=== PATIENT | female | born 1930 | race Caucasian/White ===

== ENCOUNTER 2016-12-23 13:20 | Emergency (ER) | payer MEDICARE, MEDICAID ==
[~2016-12-23 13:20] MED LIST: ALPHAGAN-P5 ML OU; ASCORBIC ACID500 MG PO; AUGMENTIN875 MG PO; BACTROBAN OINT.22 GM TP; BETAXOLOL 0.5% OU; CLARITIN DPS10 MG PO; COLACE-DPS100 MG PO; COUMADIN DPS2 MG PO; DELTASONE DPS5 MG PO; DUONEB DPS3 ML IH; DURAGESIC-1212 MCG TD; HCTZ12.5 MG PO; HYDROCODONE 5MG/5 MG PO; LIDODERM PATC1 PATCH TD; LOMOTIL-DPS1 TAB PO; LUMIGAN 0.01%2.5 ML OU; MAALOX DPS30 ML PO; MACROBID100 MG PO; MULTIPLE VITAM1 EACH PO; MYCELEX TROCHE10 MG PO; MYRBETRIQ50 MG PO; NEURONTIN DPS300 MG PO; NITROSTAT0.4 MG SL; NORVASC5 MG PO; OCEAN NASAL MIS45 ML NS; OYSTER SHELL C500 MG PO; PLAQUENIL DPS200 MG PO; SPORTS CREAM85 GM TP; SURFAK DPS240 MG PO; SYNTHROID DP0.025 MG PO; TEARS NATURAL D15 ML OU; TOVIAZ8 MG PO; TYLENOL DPS325 MG PO; TYLENOL-DPS650 MG PR; VITAMIN D1000 UNI1 PO; XYLOCAINE TP; ZOLOFT DPS25 MG PO
--- NOTE | 2016-12-30 08:39 | ER ---
ADMIT: 12/23/2016 RM/LOC: ER [facility] MR#: [id number] [address] [address] [place] [address] Emergency Room Report SEX: F AGE: 86 : 1930 DATE: 12/23/2016 This 86-year-old female sent to the ER by the longterm because the patient refused to take medication to treat her UTI. She has apparently become belligerent and angry at the longterm staff and she stated she hated the staff there, hated the longterm, and did not want to take her medicines because of that. See T sheet for history and physical. UA was reviewed which had been done 2 days prior and it is indicative of the UTI. See T sheet for remainder of history and physical. CBC was pertinent for hemoglobin 11.4. Chemistries, sodium 146 and BUN of 34 and creatinine was 1.56. The patient was diagnosed with a UTI and subtherapeutic INR. She was given Bactrim in the Emergency Department, returned to the longterm where they were to continue Bactrim 1 p.o. b.i.d. times the next 10 days. Repeat an INR on Sunday and follow up with her doctor on Sunday. DIAGNOSES: 1. Urinary tract infection. 2. Subtherapeutic INR. Jase Mejia MD/ adalgisa JOB #: [id number] CC: Jase Mejia MD, Attending Physician UNKNOWN, Family Physician
[2017-01-28] MEDS ORDERED: NEURONTIN DPS300 MG PO (12:14)
[2017-01-28] MEDS ORDERED: MICRO-K DPS10 MEQ PO (12:14)
[2017-01-28] MEDS ORDERED: SEROQUEL50 MG PO (12:14)
[2017-01-28] MEDS ORDERED: CORDARONE DPS200 MG PO ×2 (12:14)
[2017-01-28] MEDS ORDERED: LOPRESSOR DPS100 MG PO (12:14)
[2017-01-28] MEDS ORDERED: SYNTHROID DP0.025 MG PO (12:14)
[2017-01-28] MEDS ORDERED: BETOPTIC S15 ML OU (12:15)
[2017-01-28] MEDS ORDERED: XALATAN2.5 ML OU (12:15)
[2017-01-28] MEDS ORDERED: ZOLOFT DPS25 MG PO (12:15)
[2017-01-28] MEDS ORDERED: THERA-M1 EACH PO (12:15)
[2017-01-28] MEDS ORDERED: DUONEB DPS3 ML IH (12:16)
[2017-01-28] MEDS ORDERED: MAALOX DPS30 ML PO (12:16)
[2017-01-28] MEDS ORDERED: TYLENOL DPS325 MG PO (12:16)
[2017-01-28] MEDS ORDERED: DURAGESIC1 EAC2 TP (12:16)
[2017-01-28] MEDS ORDERED: NITROSTAT0.4 MG SL (12:17)
== END 2016-12-23 19:50 | disposition home or self-care (01) ==
LOC: ER 13:20
DX: N39.0 Urinary tract infection, site not specified (principal); R79.1 Abnormal coagulation profile; E03.9 Hypothyroidism, unspecified; Z86.711 Personal history of pulmonary embolism; Z79.01 Long term (current) use of anticoagulants; Z79.899 Other long term (current) drug therapy

== ENCOUNTER 2017-01-15 12:01 | Inpatient (IN) | payer MEDICARE, MEDICAID ==
[~2017-01-15] VITALS: Ht 162.6 cm; Wt 86.6 kg
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
--- NOTE | ~2017-01-15 | CO ---
ADMIT: 01/15/2017 RM/LOC: 421 [facility] MR#: [id number] [id number] [address] [place] [address] Consultation SEX: F AGE: 86 : 1930 DATE OF CONSULTATION: 01/23/2017 ATTENDING PHYSICIAN: Sulaiman Thomas CONSULTING PHYSICIAN: Sulaiman Hummel MD ADDENDUM: You can see full dictated consult by Boo Whiting. She is a very pleasant, 86-year-old female, who came in with bright red blood per rectum. However, an INR was greater than 10. She has also been on Eliquis here. Her hemoglobin, she had been given a couple units of blood. They reversed her INR, but she still has had some drop in her blood count. She has though recently had a couple of bowel movements that were normal as far as brown with no evidence of blood per nursing. At this point, I was asked by Dr. Thomas to evaluate for upper and lower scopes. I visited with the Kelvin. The last time I can see, she had a colonoscopy in 2001 and one small cecal polyp. She did have multiple diverticulae, which could have been the source of bleeding although anything with an INR greater than 10 could have been bleeding. She did have a dose of Eliquis this morning so for now that is on hold and so my plan would be to prep her tomorrow and do upper and lower scopes on . I visit with Kelvin. She is okay with that. It is okay with proceeding with the scopes. Hemoglobin is 7.6 today. Otherwise, no complaints of abdominal pain. Exam of her abdomen is otherwise benign nothing else significant change. PLAN: As above. Sulaiman Hummel MD/ adalgisa JOB #: [id number] CC: Sulaiman Thomas, Attending Physician Sulaiman Thomas, Family Physician Sulaiman Thomas MD
--- NOTE | ~2017-01-15 | ECH ---
Transthoracic Echocardiography Report (TTE) Demographics Patient Name KELVIN TRINH Date of Study 01/16/2017 Patient Number [id number] Visit Number [id number] Date of 1930 Room Number 308 Accession Number [id number] Gender Female Age 86 year(s) Referring William Harringtonen [employer] Denise Isabel Physician Jeimy TAMAYO [facility] Tomás Physician Interpreting Jeimy TAMAYO Safe Deposit Attendant Physician Tomás Supervising Ordering Physician Jeimy TAMAYO MD/YINA [place] Nurse Stress Laboratory Tech Conclusions Contractility Score Summary Normal Left Ventricular contractility was noted. Summary Technically adequate exam. The estimated left ventricular ejection fraction is 60-65%. Discrete upper septal thickening without a gradient. The left atrium is severely dilated by LA volume index measurement. The right atrium is mildly dilated. Mild-moderate mitral regurgitation by color Doppler. There is mild aortic regurgitation by color Doppler. Mild tricuspid regurgitation by color Doppler. There is mild pulmonary hypertension. The pulmonary pressure (RVSP) is 35 mmHg. The ascending aorta appears mildly dilated. The maximum diameter measures 3.2 cm. Recommendation The patient was given the results of the exam during their hospital stay. Procedure Type of Study TTE procedure:Echo Complete SF. Procedure Date Date: 01/16/2017 Start: 08:55 Technical Quality: Adequate visualization Indications:Paroxysmal a-fib and Hypertension. Appropriate Use Criteria: 9 Height: 64 inches Weight: 172 pounds BSA: 1.83 m Rhythm: Within normal limits HR: 72 bpm BP: 113/39 mmHg M-Mode/2D Measurements LV Diastolic Dimension: 4.88 cm LV Systolic Dimension: 2.89 cm LV Septum Diastolic: 0.83 cm LV PW Diastolic: 0.82 cm AO Root Dimension: 2.85 cm Cardiac Output: 5.97 l/min LA Dimension: 4.69 cm Cardiac Index: 3.26 l/min*m RV Diastolic Dimension: 4.11 cm LA volume index: 48 ml/m LVOT: 1.97 cm LVOT VTI: 27.2 cm RV Base: 3.8 cm LV Stroke volume: 82.86 ml RV Mid: 2.1 cm LV Stroke volume index: 45.28 ml/m TAPSE: 1.6 cm TDI-S': 13 cm/s Doppler Measurements AV Peak Velocity: 2.3 m/s MV Peak E-Wave: 1.36 m/s AV Peak Gradient: 21.16 mmHg MV Peak A-Wave: 1.22 m/s AV Mean Gradient: 12.77 mmHg MV E/A Ratio: 1.12 LVOT Peak Velocity: 1.29 m/s MV P1/2t: 52.9 msec AV Area (Continuity):1.75 cm AV P1/2t: 352.3 msec MV Deceleration Time: 174 msec TR Velocity:2.84 m/s MV Area (PHT): 4.16 cm TR Gradient:32.26 mmHg PV Peak Velocity: 1.2 m/s Estimated RAP:3 mmHg PV Peak Gradient: 5.74 mmHg Estimated RVSP: 35 mmHg Estimated PASP: 35.26 mmHg E' Septal Velocity: 0.06 m/s A' Septal Velocity: 0.06 m/s E' Lateral Velocity: 0.1 m/s A' Lateral Velocity: 0.08 m/s RA Area: 18.78 cm Findings Left Ventricle Normal left ventricle size and function. Diastolic assessment reveals normal relaxation. Right Ventricle Normal right ventricle structure and function. Left Atrium The left atrium is severely dilated by LA volume index measurement. Right Atrium The right atrium is mildly dilated. Mitral Valve Mild mitral annular calcification. Mild-moderate mitral regurgitation by color Doppler. Aortic Valve The aortic valve is moderately sclerotic. There is mild aortic regurgitation by color Doppler. Tricuspid Valve Normal tricuspid valve structure and function. Mild tricuspid regurgitation by color Doppler. There is mild pulmonary hypertension. The pulmonary pressure (RVSP) is 35 mmHg. Pulmonic Valve Normal pulmonic valve structure and function. Mild pulmonic valve regurgitation by color Doppler. Pericardial Effusion No evidence of pericardial effusion. Miscellaneous The ascending aorta appears mildly dilated. The maximum diameter measures 3.2 cm. Pleural Effusion No evidence of pleural effusion. Contractility Score LV regional wall motion:(0-Non visualized 1-Normal 2-Hypokinesis 3-Akinesis 4-Dyskinesis 5-Aneurysm) Signature
--- NOTE | ~2017-01-15 | ER ---
ADMIT: 01/15/2017 RM/LOC: 421 [facility] MR#: [id number] [id number] [address] [place] [address] Emergency Room Report SEX: F AGE: 86 : 1930 DATE: 01/15/2017 ADDENDUM: This is an addendum to GRANT Mckenzie's note. I took over the care of the patient as she became hypotensive and bradycardic in the Emergency Department at which point, the patient appeared anxious. Her lungs remained clear to auscultation. Cardiovascular, no murmur, but rapid regular rate and rhythm. Blood pressure was declining, therefore patient was given emergently 4 units of FFP and vitamin K, as well as given O positive blood. Metoprolol was given in attempts to slow heart rate down. The patient was subsequently admitted with GI bleed. Jase Mejia MD/ adalgisa JOB #: [id number] CC: Sulaiman Thomas MD, Attending Physician Sulaiman Thomas MD, Family Physician
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
--- NOTE | 2017-01-22 06:05 | NUR ---
Pt has been agitated and refusing to allow us to reposition or is refusing to allow taking of vital signs. She has been verbally abusive this shift. We have made every effort to accommodate the patient and keep her comfortable this shift. Last night she took pills with applesause but this morning is refusing until she talks with the doctor.
[2017-01-28] MEDS ORDERED: SYNTHROID DP0.025 MG PO (12:14)
[2017-01-28] MEDS ORDERED: NEURONTIN DPS300 MG PO (12:14)
[2017-01-28] MEDS ORDERED: CORDARONE DPS200 MG PO ×2 (12:14)
[2017-01-28] MEDS ORDERED: SEROQUEL50 MG PO (12:14)
[2017-01-28] MEDS ORDERED: MICRO-K DPS10 MEQ PO (12:14)
[2017-01-28] MEDS ORDERED: LOPRESSOR DPS100 MG PO (12:14)
[2017-01-28] MEDS ORDERED: ZOLOFT DPS25 MG PO (12:15)
[2017-01-28] MEDS ORDERED: XALATAN2.5 ML OU (12:15)
[2017-01-28] MEDS ORDERED: BETOPTIC S15 ML OU (12:15)
[2017-01-28] MEDS ORDERED: THERA-M1 EACH PO (12:15)
[2017-01-28] MEDS ORDERED: DUONEB DPS3 ML IH (12:16)
[2017-01-28] MEDS ORDERED: MAALOX DPS30 ML PO (12:16)
[2017-01-28] MEDS ORDERED: TYLENOL DPS325 MG PO (12:16)
[2017-01-28] MEDS ORDERED: DURAGESIC1 EAC2 TP (12:16)
[2017-01-28] MEDS ORDERED: NITROSTAT0.4 MG SL (12:17)
--- NOTE | 2017-01-28 19:20 | CO ---
ADMIT: 01/15/2017 RM/LOC: 421 [facility] MR#: [id number] [address] [address] [place] [address] Consultation SEX: F AGE: 86 : 1930 DATE OF CONSULTATION: 01/23/2017 ATTENDING PHYSICIAN: Sulaiman Thomas CONSULTING PHYSICIAN: Sulaiman Hummel MD REASON FOR CONSULTATION: Anemia, question GI blood loss. HISTORY OF PRESENT ILLNESS: Kelvin is a very pleasant 86-year-old female, who apparently was at her retirement about a week ago where staff noted blood in her bed that appeared to be coming from her rectum. It was bright red blood at this time. Since then, she came in through the Emergency Department and was found to have an INR of 10. She was reversed at that time, and now the INR has been subtherapeutic throughout her hospital stay. She was improving based off her hemoglobin with conservative measures, but now there has been a noted trend downwards with her hemoglobin. When discussing with the patient, she reports that she has noticed blood in her stool, however, she does not know exactly when that happened. Of note, she does have issues with dementia. She denies any pain, nausea, vomiting, diarrhea, or constipation. Apparently, the last day or two she had some rather large bowel movements that were brown. She does report getting colonoscopy done, but she does not remember exactly when it was. She denies any prior EGDs. PAST MEDICAL HISTORY: Significant for atrial fibrillation, hypertension, dementia, pulmonary emboli, GERD, depression, arthritis, glaucoma, and rheumatoid arthritis. PAST SURGICAL HISTORY: The patient reports back surgery, right total knee, and IVC filter placement. ALLERGIES: TRIMETHOPRIM SULFA AND MORPHINE. MEDICATIONS: Well documented in chart. She was on Eliquis that has now been held. FAMILY HISTORY: Noncontributory. SOCIAL HISTORY: The patient denies any tobacco, alcohol, or illicit drug use. REVIEW OF SYSTEMS: CONSTITUTIONAL: The patient denies any fever, chills, or night sweats. MUSCULOSKELETAL: The patient ambulates with a walker, but denies any joint pain or loss of range of motion. PHYSICAL EXAMINATION: GENERAL: The patient is in no acute distress. She is alert and oriented. HEENT: Head is normocephalic and atraumatic. EOMs are intact. Conjunctivae free of icterus, erythema, or pallor. Pinnae, free of deformities. Nose, midline. No tracheal deviation. ADMIT: 01/15/2017 RM/LOC: 421 [facility] MR#: [id number] [facility] [address] [address] [place] [address] Consultation SEX: F AGE: 86 : 1930 NECK: Supple. SKIN: Negative for jaundice, clubbing, edema, pallor, or cyanosis. Some purpura noted on the upper extremities consistent with anticoagulation therapy. LUNGS: Normal respiratory effort. HEART: Distal pulses intact. Regular rate and rhythm. ABDOMEN: Soft, nondistended, and nontender. NEURO: Grossly intact. LABORATORY DATA: Current hemoglobin is 7.6. ASSESSMENT: Anemia, anticoagulation therapy. PLAN: The plan is to have the patient undergo colonoscopy to assess for lower gastrointestinal bleed. Her Eliquis was held today. I discussed the risks, alternatives, benefits, and complications of colonoscopy with the patient to which she has agreement of this plan, had all her questions answered and will like to proceed. I have her on the schedule currently, but we might reschedule for a later date to give time for the Eliquis to metabolize. The patient agrees and would like to proceed. Thank you for the consultation on this patient. GRANT Magana / Sulaiman Hummel MD / adalgisa JOB #: [id number] CC: Sulaiman Thomas, Attending Physician Sulaiman Thomas, Family Physician
--- NOTE | 2017-01-29 08:10 | CO ---
ADMIT: 01/15/2017 RM/LOC: 421 [facility] MR#: [id number] [address] [address] [place] [address] Consultation SEX: F AGE: 86 : 1930 DATE OF CONSULTATION: 01/24/2017 ATTENDING PHYSICIAN: Sulaiman Thomas CONSULTING PHYSICIAN: Lauri Vera MD LOCATION: [facility]. REASON FOR CONSULTATION: Dr. Thomas has requested our consultation for tour counselor and coordination goals and options of care. HISTORY OF PRESENT ILLNESS: This is an 86-year-old, elderly female, who lives at [facility], who apparently a week ago noticed blood in her bed, appeared to be coming from her rectum. She presented to the Emergency Department and was found to have an INR of 10. Her INR was reversed at that time, and her Coumadin is currently on hold. She was improving with her hemoglobin with conservative measures, but recently her hemoglobin has been decreasing with bloody stools. There are plans for an EGD and a colonoscopy tomorrow. She does have known dementia and appears calm and comfortable. She is alert, however confused, and not cooperative with cares at times. Urine culture was obtained which did reveal E. coli. She is currently on antibiotic therapy with Merrem. She is receiving GoLYTELY as her prep for her EGD and colonoscopy is scheduled for tomorrow. Current functional status reflects a palliative performance score of around 50. She spends most of time sitting or lying, unable to any work, needing assistance with self care. Her intake is reduced. Her conscious level, she is alert, however confused and agitated at times with interaction. Prior to admission, her functional status reflects a palliative performance score of around 50 to 60 with reduced ambulation, unable to do hobbies or housework, needing assistance with self care. Her intake has been reduced. Her conscious level, she is alert and confused. She currently lives at [facility]. Her FAST score is a 6. PAST MEDICAL HISTORY: 1. Dementia. 2. Paroxysmal atrial fibrillation, on chronic anticoagulation with Coumadin. 3. Hypertension. 4. Pulmonary emboli. 5. GERD. 6. Depression. 7. Arthritis. 8. Glaucoma. 9. Rheumatoid arthritis. 10.Chronic pain, using Duragesic patch 25 mcg an hour. PAST SURGICAL HISTORY: 1. Back surgery. 2. Right total knee surgery. ADMIT: 01/15/2017 RM/LOC: 421 [facility] MR#: [id number] [address] [address] [place] [address] Consultation SEX: F AGE: 86 : 1930 3. IVC filter. ADVANCED DIRECTIVE AND CODE STATUS: She is a do not resuscitate/do not intubate status. She does have a guardian which is her son Tomás Reese #[phone]. SOCIAL HISTORY: She lives at [facility]. She is . She is Spiritism. There was no reports of alcohol, tobacco use, or illicit drug use. FAMILY HISTORY: Reviewed and noncontributory. CURRENT MEDICATIONS: Include; 1. Micro-K. 2. Merrem. 3. Lopressor. 4. Colace. 5. Maalox. 6. Duragesic 25 mcg patch. 7. Multivitamin. 8. Zoloft. 9. Seroquel. 10.Synthroid. 11.Xalatan. 12.Betoptic. 13.Neurontin. 14.DuoNeb. 15.Tylenol. ALLERGIES: SULFA, MORPHINE, SULFAMETHOXAZOLE, TRIMETHOPRIM. REVIEW OF SYSTEMS: A 10-point review of system was conducted, however due to patient's cognition, I was unable to obtain. PHYSICAL EXAMINATION: CONSTITUTIONAL: Weight is 188 pounds. Please see medical record for height and BMI. GENERAL STATUS: This is an elderly female, in no acute distress. Alert and confused with discussion and becomes agitated with my consultation. VITAL SIGNS AND CODE STATUS: She is a do not resuscitate/do not intubate status with temperature of 96.9, heart rate 60, respiratory rate 16, blood pressure 160/63. She is on room air oxygenating at 91%. HEENT: Head is normocephalic, atraumatic. She is not wearing glasses. Pupils are 3 mm, PERRLA. Hearing is diminished bilaterally. Oral mucosa is pink and moist. Dentition is worn. Anicteric sclerae. Conjunctiva is pale. NECK: No lymphadenopathy. Trachea is midline. Supple. No JVD. RESPIRATORY: Respirations are regular without distress. Lung sounds are diminished bilaterally. CARDIOVASCULAR: Rate and rhythm are regular. I do not auscultate rubs, ADMIT: 01/15/2017 RM/LOC: 421 [facility] MR#: [id number] [address] [place] [phone] [place] [address] Consultation SEX: F AGE: 86 : 1930 murmurs, clicks, or gallops. GASTROINTESTINAL: Abdomen is soft, flat, nontender and nondistended. Positive bowel sounds in all 4 quadrants. EXTREMITIES: Upper and lower extremities are free of cyanosis, clubbing, or edema. INTEGUMENTARY: Skin temperature is warm. Skin is intact. MUSCULOSKELETAL: Free of joint deformities. Does have generalized weakness. NEUROLOGICAL: She is alert, however, confused with conversation. She does not follow commands for me at this time. Dementia has a FAST score of 6. PSYCHIATRIC: Affect is flat. Insight is impaired. DIAGNOSTIC DATA: Laboratory work reveals a sodium 147, potassium 3.3, chloride 114, creatinine 0.4, albumin 2.6. INR 1.28 on 01/21. WBCs 4.9, hemoglobin 10.1, hematocrit 32.9, platelets 163. Urine culture on 01/15 was positive for E. coli as well as ESBL positive. IMPRESSION AND PLAN: 1. Physical debility. 2. Fatigue. 3. Protein-calorie malnutrition moderate with an albumin 2.6. She has poor oral intake. She does have a wound which Wound Care is following. 4. Palliative care. 5. Dementia with FAST score 6. 6. Acute gastrointestinal bleeding, status post transfusions. EGD and colonoscopy are planned for tomorrow. 7. Paroxysmal atrial fibrillation, on chronic anticoagulation with Coumadin, currently on hold. 8. History of pulmonary embolism, on chronic anticoagulation with Coumadin. Coumadin is currently on hold. 9. Anemia with acute blood loss. 10.urinary tract infection. Urine culture was positive for Escherichia coli and extended-spectrum beta-lactamases. 11.Valvular heart disease with moderate mitral regurgitation. 12.Rheumatoid arthritis. 13.Chronic pain on Duragesic patch 25 mcg an hour. 14.Do not resuscitate/do not intubate status. Symptoms appear controlled currently. RN reports no bloody stools today, and hemoglobin stable at 10.1 this morning at 0247. I did speak with guardian Tomás by the phone from the bedside and reviewed Mrs. Reese's overall health concerns as well as goals and options of care. He verbalizes understanding of serious illness and he does confirm a do not resuscitate/do not intubate status. He reports that his No.1 goal is to continue with plan of care at this time with further evaluation of bleeding, and once more information is obtained, he will continue to make future care decisions. He is aware further anticoagulation may not be tolerated in the future, however, I encourage him to await further information from her EGD and colonoscopy scheduled for tomorrow. He hopes that she can return to [facility] on discharge and he does express if his mother's health continues to decline or ADMIT: 01/15/2017 RM/LOC: 421 [facility] MR#: [id number] [address] [place] [address] [place] [phone] [place] [address] Consultation SEX: F AGE: 86 : 1930 the medical team feels that hospice care is the best path of care, he is open to this. For now, Tomás (guardian) goal is to continue optimization. Much support given during this consultation. I have discussed this consultation with nursing staff. We will continue to follow and assist with tour counselor and coordination of goals and options of care as more information is obtained during her hospitalization. Mrs. Reese was seen in collaboration with Dr. Lauri Vera who agrees with above assessment, discussion, and plan. I would like to thank Dr. Thomas for the invitation to participate in Mrs. Reese's hospital course. Total consultation time was from 1159 hours to 1246 on 01/24/2017 by the Palliative Medicine RISK CONTROL FIELD REPRESENTATIVE. Greater than 50% of time was spent at the bedside in tour counselor, coordination of care. María Coon APRN / Lauri Vera MD / adalgisa JOB #: [id number] CC: Sulaiman Thomas, Attending Physician Sulaiman Thomas, Family Physician
--- NOTE | 2017-01-29 08:57 | OR ---
ADMIT: 01/15/2017 RM/LOC: 421 [facility] MR#: [id number] [address] [address] [place] [address] Operative/Delivery Room Report SEX: F AGE: 86 : 1930 SURGERY DATE: 01/26/2017 SURGEON: Jefry Crawley MD PRE-PROCEDURE DIAGNOSES: 1. Anemia. 2. Gastrointestinal bleed. POSTPROCEDURE DIAGNOSES: 1. Nonbleeding duodenal bulb ulcer. 2. Type 1 sliding hiatal hernia. 3. Nonobstructive distal esophageal ring. PROCEDURE: EGD with antral biopsies. INDICATIONS: Patient is an 86-year-old female, evaluated by Dr. Hummel, who was noted to be over anticoagulated with anemia and GI bleed who presents for upper endoscopy evaluation. FINDINGS: The patient was taken to the endoscopy suite. IV sedation was given. She was placed in left lateral decubitus position. A bite block was placed in the patient's mouth. The gastroscope was introduced down the oropharynx, down the esophagus, into the stomach through the pylorus and the duodenum. The duodenal bulb showed evidence of duodenitis. We went through the duodenal bulb into the second and third portion of duodenum appeared normal on careful colonoscopic examination. On reexamination of the bulb, right between one of the duodenal folds, there was shallow, small, nonbleeding duodenal ulcer. There was no evidence of gastritis. I did do antral biopsies to rule out Helicobacter. On retroflexion view, there was about 2-3 cm type 1 sliding hiatal hernia. On exam of the GE junction, there was nonobstructive distal esophageal ring with no distal esophageal Linares's and no obvious inflammation, no esophageal varices. The remainder of the mid and upper esophagus normal. The gastroscope was removed. The patient tolerated the procedure without difficulty, she was transferred to recovery room in good condition. Jefry Crawley MD/ adalgisa JOB #: [id number] CC: Sulaiman Thomas, Attending Physician Sulaiman Thomas, Family Physician
--- NOTE | 2017-03-04 13:25 | DS ---
ADMIT: 01/15/2017 RM/LOC: [address] [facility] MR#: [id number] [address] [address] [place] [address] General Discharge Summary SEX: F AGE: 86 : 1930 ADMISSION DATE: 01/15/2017 DISCHARGE DATE: 01/26/2017 ADMITTING DIAGNOSIS: As per history and physical. FINAL DIAGNOSES: 1. Acute gastrointestinal bleed. 2. Duodenal ulcer with hemorrhage. 3. Acute blood loss anemia. 4. Acute renal failure due to hypotension. 5. Chronic protein-calorie malnutrition. 6. Sacral pressure ulcer, unstageable. 7. Vascular dementia with behavioral disturbance. 8. Chronic cerebrovascular disease. 9. Acute urinary tract infection. 10.Paroxysmal atrial fibrillation. 11.Ongoing anticoagulant therapy with Coumadin. 12.Pressure ulcer right heel, unstageable. 13.Hiatal hernia with reflux esophagitis. 14.Chronic mitral insufficiency valvular heart disease. 15.Hypertension. 16.Diverticulosis of the colon. 17.Chronic gastroesophageal reflux disease. 18.Chronic pain syndrome. 19.Major depressive disorder. 20.Rheumatoid arthritis with multiple joint deformities. 21.Glaucoma. 22.Generalized osteoarthritis. 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 24.Past history of pulmonary embolus. PROCEDURES: The patient had EGD with biopsy of the stomach on 01/26/2017. The patient received transfusion with packed cells on 01/15/2017 as well as of transfusion of fresh frozen plasma. CLINICAL HISTORY: Mrs. Reese is a very debilitated 86-year-old female, who resides at [facility]. [facility] to the prison after having an apparent large bloody stool with melena as well as current jelly type rectal bleeding. She was transferred to the ER because of her apparent acute GI bleed. Hemoglobin in the ER was noted to be 7.3. Her INR was noted to be greater than 10. It is noted that she is on Coumadin anticoagulation because of her paroxysmal atrial fib and past history of pulmonary embolus. She was also found in the ER to be in acute renal failure. For further details of her clinical history as well as past medical history and pertinent findings on physical exam, please see dictated history and physical. In addition to her history and physical, please also see dictated consultation. She was seen by [facility] Cardiology, Surgery group as well as Palliative Care consult from Dr. Vera. For additional history, please see those consultations as well as her H and P. ADMIT: 01/15/2017 RM/LOC: [address] [facility] MR#: [id number] [facility] [address] [address] [place] [address] General Discharge Summary SEX: F AGE: 86 : 1930 LABORATORY AND X-RAY SUMMARY FROM THIS ADMISSION: For complete details of lab, please see cumulative laboratory summary included in the chart. Brief synopsis of lab; her initial CBC showed a hemoglobin of 7.3, hematocrit 23.5, white count was 11,000, and platelet count was normal at 219,000. Later on the day of admission, her hemoglobin was 7.9, hematocrit 24.5. Hemoglobin dropped down to 7.0 on 01/17/2017. Ultimately, the patient was transfused, but post transfusion hemoglobin syl to 8.7 on 01/19/2017, but then trended back down to 8.0 at dismissal. Her hemoglobin dropped again to 7.6 on 01/23/2017. She was then given 2 more units of blood and hemoglobin then syl to 10.1. At dismissal, hemoglobin was 9.9 with hematocrit of 32. CBCs were checked on a daily basis throughout the hospitalization. Her pro -times were monitored initially on a daily basis. Coumadin was placed on hold on admission. On admission, her pro-time was greater than 100, with INR greater than 10. Later in the day after being given fresh frozen plasma, pro-time was down to 14.9 with an INR of 1.42. The patient was not started back on Coumadin at the time of discharge and was off Coumadin throughout entire hospitalization. Her urinalysis on admission showed 3+ blood, negative nitrites, 1+ leukocyte esterase, 34 wbc's per high-power field. Stools were positive for occult blood. On admission, her BUN was 56 with a creatinine of 1.5. Blood sugar was 145. Chemistry studies were monitored on almost a daily basis. On her second hospital day, following IV fluids, her BUN was 44 and creatinine 1.2. At discharge, her sodium was 146, potassium 3.9, BUN was 8, and creatinine was 0.5. Her calculated GFR at discharge was 87. Her TSH on admission was normal at 1.210. Urine culture did grow out E. coli, greater than 100,000 colonies and she was treated for this E. coli urinary tract infection. The patient received 4 units of fresh frozen plasma on 01/15/2017, to correct her supratherapeutic INR. She was then transfused with 2 units of packed cells on 01/15/2017, and another 2 units of packed cells on 01/23/2017. She received a total of 4 units of blood and 4 units of fresh frozen plasma during this hospitalization. Her blood type is noted to be O positive with negative antibody screen. X-ray studies included a CT of her abdomen which showed thickened bladder wall. Arteriosclerotic changes of the abdominal aorta and iliac arteries but no other acute intraabdominal pathology other than for some diverticulosis of the colon. Her initial chest x-ray showed cardiomegaly without vascular congestion. No significant infiltrates. Her echocardiogram showed an EF of 60-65%, moderate mitral regurgitation, mild aortic regurgitation, mild tricuspid regurgitation, moderate pulmonary hypertension but well-preserved EF. Her EKGs on admission showed her to be in atrial fibrillation with rapid ventricular response. Subsequent EKG showed her to convert to a sinus rhythm with some nonspecific ST-T wave changes, some anterior lateral ST-T wave changes noted. The patient did have EGD on 01/26/2017, that showed a nonbleeding duodenal ulcer, a hiatal hernia, and a distal esophageal ring. HOSPITAL COURSE: The patient was admitted with an acute GI bleed with supratherapeutic INR. Her anticoagulation was reversed with vitamin K as well as fresh frozen plasma. She was covered with IV steroids because of her long- ADMIT: 01/15/2017 RM/LOC: [address] [facility] MR#: [id number] [address] [address] [place] [address] General Discharge Summary SEX: F AGE: 86 : 1930 term steroid use and suspected adrenal insufficiency. We did have her seen in consultation for her atrial fibrillation with rapid ventricular response by the Cardiology group, Dr. Munson saw her. We also had her seen by Dr. Hummel in the Surgery group for this acute GI bleed and initially it was felt to be related to her supratherapeutic INR, but she continued to have evidence of some ongoing GI blood loss even after her anticoagulation was reversed. She was found to have a UTI and was treated for this. The patient does have severe vascular dementia with marked cognitive impairment and severe behavioral disorder. She was continued on her usual medications for management of her dementia-related symptoms. She ultimately during this hospitalization received 4 units of packed cells for her acute blood loss anemia. Her cardiovascular status stabilized once her anemia was corrected. Ultimately, we elected to keep her off anticoagulation because of the significant GI bleed. She took several days, but she did return to her baseline level of confusion and dementia. We continued treatment for her UTI, monitoring for further signs of recurrent bleeding. We had Surgery group do an EGD and did confirm a duodenal ulcer, which she then elected to treat. Wound therapy managed her multiple areas of skin breakdown. IM Zyprexa was used for her agitation and problematic behaviors. Ultimately, she was stable enough to return to the prison and was transferred back to the prison on 01/26/2017 with plans to treat for her duodenal ulcer. At discharge, her medications were to include: 1. Cordarone 400 mg t.i.d. loading dose for 7 days then to decrease to 200 mg daily. 2. Lopressor 100 mg b.i.d. 3. Micro-K 10 mEq b.i.d. 4. Neurontin 300 mg q.i.d. 5. Seroquel 50 mg t.i.d. 6. Levothyroxine 25 mcg daily. 7. Multivitamin 1 daily. 8. Zoloft 25 mg daily. 9. Betoptic ophthalmic drops 1 drop both eyes t.i.d. 10.Xalatan ophthalmic drops, 1 drop both eyes at bedtime. 11.Duragesic 25 mcg patch, changed every 72 hours for chronic pain. 12.Maalox 30 mL every 6 hours p.r.n. indigestion. 13.Tylenol 325 mg 2 tabs every 4 hours for pain. 14.DuoNeb p.r.n. 15.DuoNeb via twin jet nebulizer p.r.n. shortness of breath. 16.Nitrostat sublingual p.r.n. chest pain. Medications discontinued during this hospital stay included: 1. Norvasc 5 mg daily. 2. Bactrim DS. 3. Plaquenil. 4. Lasix. 5. Loratadine. ADMIT: 01/15/2017 RM/LOC: [address] [facility] MR#: [id number] [address] [place] [id number] [place] [address] General Discharge Summary SEX: F AGE: 86 : 1930 6. Coumadin. She was taken off all anticoagulation. Her Seroquel dose was increased during this hospitalization. She was placed on Prilosec 20 mg daily for her duodenal ulcer. Arrangements were made to transfer her back to the prison with plans for hospice care when she returns to the prison. Hospice to consult with family on return to the prison. I would recommend no further hospitalizations. Proceed with comfort care and treatment of all problems at the prison from this point on. CONDITION AT DISCHARGE: Stable and improved. LONG-TERM PROGNOSIS: Extremely poor. Hospice care recommended. Sulaiman Thomas MD/ adalgisa JOB #: [id number] CC: Sulaiman Thomas MD, Attending Physician Sulaiman Thomas MD, Family Physician
--- NOTE | 2017-03-14 11:02 | ER ---
ADMIT: 01/15/2017 RM/LOC: [address] [facility] MR#: [id number] [address] [address] [place] [address] Emergency Room Report SEX: F AGE: 86 : 1930 DATE: 01/15/2017 HISTORY OF PRESENT ILLNESS: This patient comes to the ER because they are concerned about rectal/vaginal bleeding. This was noted prior to arrival. She denies any pain. No vomiting or diarrhea. The patient is on Coumadin. She has a history of atrial fib and hypertension. She comes from [facility]. PAST MEDICAL HISTORY: Hypertension, depression, GERD, hypothyroidism, and atrial fibrillation. MEDICATIONS: See list, Coumadin. ALLERGIES: NONE. SOCIAL HISTORY: She comes from [facility]. REVIEW OF SYSTEMS: CONSTITUTIONAL: She denies any pain. RESPIRATORY: No cough. GI: No vomiting or diarrhea. : She denies any dysuria. PHYSICAL EXAMINATION: GENERAL: This is an alert 86-year-old female, who is diaphoretic, pale, and tachycardic. EYES: Clear. HEART: Regular rhythm. LUNGS: Clear to auscultation. ABDOMEN: Soft. No rebound tenderness. Initially looking at her perineum, she did have blood throughout and it was difficult to tell the source of the blood. The nurse did a cath UA and it did have +3 blood, gross blood and numerous RBCs. Rectal exam was also positive for occult blood. After initial exam, IV of normal saline was started. I did order type and cross for 2 units. Because the patient started to get more in stable, I consulted with Dr. Mejia, and he took over care of this patient. Please refer to his addendum for further treatment. GRANT Edge / Jase Mejia MD / adalgisa JOB #: [id number] CC: Sulaiman Thomas MD, Attending Physician Sulaiman Thomas MD, Family Physician
== END 2017-01-26 14:15 | DRG 378 ==
LOC: ER 12:01 → 3ICU 15:15 → 4PCU 15:15 → 3ICU 01-17 08:17 → 4PCU 01-17 10:13
PROVIDERS: ADMIT Family Medicine
PROC: 30233K1 Transfusion of Nonautologous Frozen Plasma into Peripheral Vein, Percutaneous Approach (ICD-10-PCS; 2017-01-15)
PROC: 30233N1 Transfusion of Nonautologous Red Blood Cells into Peripheral Vein, Percutaneous Approach (ICD-10-PCS; 2017-01-15)
PROC: 0DB68ZX Excision of Stomach, Via Natural or Artificial Opening Endoscopic, Diagnostic (ICD-10-PCS; principal; 2017-01-26)
DX: K26.4 Chronic or unspecified duodenal ulcer with hemorrhage (principal); N17.9 Acute kidney failure, unspecified; E44.0 Moderate protein-calorie malnutrition; L89.150 Pressure ulcer of sacral region, unstageable; D68.32 Hemorrhagic disorder due to extrinsic circulating anticoagulants; F01.51 Vascular dementia, unspecified severity, with behavioral disturbance; N39.0 Urinary tract infection, site not specified; D62 Acute posthemorrhagic anemia; I48.0 Paroxysmal atrial fibrillation; T45.515A Adverse effect of anticoagulants, initial encounter; L89.610 Pressure ulcer of right heel, unstageable; K44.9 Diaphragmatic hernia without obstruction or gangrene; I34.0 Nonrheumatic mitral (valve) insufficiency; I10 Essential (primary) hypertension; B96.20 Unspecified Escherichia coli [E. coli] as the cause of diseases classified elsewhere; K57.90 Diverticulosis of intestine, part unspecified, without perforation or abscess without bleeding; K21.0 Gastro-esophageal reflux disease with esophagitis; G89.4 Chronic pain syndrome; M15.9 Polyosteoarthritis, unspecified; F32.9 Major depressive disorder, single episode, unspecified; M06.9 Rheumatoid arthritis, unspecified; H40.9 Unspecified glaucoma; Z96.641 Presence of right artificial hip joint; Z96.651 Presence of right artificial knee joint; Z79.01 Long term (current) use of anticoagulants; Z86.711 Personal history of pulmonary embolism; Z86.718 Personal history of other venous thrombosis and embolism; Z66 Do not resuscitate; Z16.12 Extended spectrum beta lactamase (ESBL) resistance